=== PATIENT | female | born 1985 | race Caucasian/White ===

== ENCOUNTER 2020-06-01 15:14 | Emergency (ER) | payer OTHER ==
[~2020-06-01] VITALS: Ht 165.1 cm; Wt 81.7 kg
[2020-06-01] MEDS ORDERED: VENTOLIN HFA 1818 GM INH (16:43)
[2020-06-01] MEDS ORDERED: ZPAK PO (16:43)
[2020-06-01 16:54] VITALS: BP 136/92
== END 2020-06-01 16:55 | disposition home or self-care (01) ==
LOC: M.ERS 15:14
DX: J06.9 Acute upper respiratory infection, unspecified (principal); Z20.828 Contact with and (suspected) exposure to other viral communicable diseases; Z90.49 Acquired absence of other specified parts of digestive tract

== ENCOUNTER 2021-10-15 09:57 | Emergency (ER) | payer OTHER ==
[~2021-10-15] VITALS: Ht 154.9 cm; Wt 88.0 kg
[~2021-10-15 09:57] MED LIST: VENTOLIN HFA 1818 GM INH; ZPAK PO
[2021-10-15 16:17] LABS: ABSOLUTE LYMPHOCYTES 1.3 thou/uL (0.8-5.3); ABSOLUTE MONOCYTES 0.6 thou/uL (0.0-1.2); ABSOLUTE NEUTROPHILS 1.6 thou/uL (1.6-8.1); BASOPHILS 0.5 %; EOSINOPHILS 0.4 %; HEMATOCRIT 42.7 % (37.0-47.0); HEMOGLOBIN 14.4 gm/dL (12.0-15.0); LYMPHOCYTES 37.8 %; MCH 27.8 pg (26.0-34.0); MCHC 33.7 g/dL (28.0-37.0); MCV 82.3 fL (80.0-100.0); MPV 9.1 fl. (7.2-11.1); NUCLEATED RBCS 0 /100WBC; PLATELET COUNT* 254 thou/uL (150-400); POLYS 44.3 %; RBC 5.18 mil/uL (4.20-5.00); RDW-CV 13.6 % (10.5-14.5); WBC 3.5 thou/uL (4.0-11.0)
[2021-10-15 16:33] LABS: CALCIUM 8.8 mg/dL (8.5-10.1); CREATININE 0.8 mg/dL (0.6-1.3); POTASSIUM 3.3 mmol/L (3.5-5.1)
[2021-10-15 16:37] LABS: ALBUMIN 3.6 g/dL (3.4-5.0); TOTAL BILIRUBIN 0.3 mg/dL (<0.1-1.0); TOTAL PROTEIN 7.9 g/dL (6.4-8.2)
[2021-10-15] MEDS ORDERED: ZOFRAN ODT4 MG PO (17:01)
[2021-10-15] MEDS ORDERED: VENTOLIN HFA 1818 GM INH (17:01)
[2021-10-15] MEDS ORDERED: FLEXERIL PO (17:01)
[2021-10-15 17:22] VITALS: BP 127/83
--- NOTE | 2021-10-16 09:48 | EKG ---
[place] [address] ELECTROCARDIOGRAM REPORT Name: SHELLEY QUINTERO Room: [facility]#: [id number] Admission: 10/15/21 Attend Phys: Discharge: 10/15/21 Date of : 89 Date of Service: 10/15/211613 Report #: [id number] THIS REPORT FOR: //name// [facility] ED Test Date: 2021-10-15 Test Time: 16:14:59 Pat Name: SHELLEY QUINTERO Department: Room: Gender: F [employer]: : 1985 Requested By: Maty Ruiz Order Number: [id number] MD: Thang Saucedo Measurements Intervals Gary Rate: 70 P: 40 MO: 160 QRS: 6 QRSD: 97 T: 2 QT: 420 QTc: 454 Interpretive Statements Sinus rhythm No previous ECG available for comparison Electronically Signed On 10-16-2021 9:48:04 [employer] by Thang Saucedo [email or web address] <ELECTRONICALLY SIGNED> By: Thang Saucedo MD, [facility] 10/16/21 0948 13 161 Thang Saucedo MD, FACC /EPI
== END 2021-10-15 17:24 | disposition home or self-care (01) ==
LOC: M.ERS 09:57
PROVIDERS: Nurse Practitioner Family
DX: U07.1 COVID-19 (principal); Z90.49 Acquired absence of other specified parts of digestive tract